=== PATIENT | female | born 1985 | race Caucasian/White ===

== ENCOUNTER 2018-12-26 16:26 | Emergency (ER) | payer OTHER ==
[~2018-12-26] VITALS: Ht 167.6 cm; Wt 79.4 kg
--- NOTE | 2018-12-26 17:01 | NUR ---
PATIENT ARRIVED AT UNIT ACCOMPANIED BY . PATIENT A/O X 3, NO ACUTE DISTRESS. REPORTS THAT SHE TRIPPED AND FELL. WITH C/O PAIN AND SWELLING ON LEFT ANKLE. RESTING ON BED. AWAITING
[2018-12-26] MEDS ORDERED: ACETAMINOPHEN ES 500 MG TABLET ONE (17:09)
[2018-12-26] MEDS ORDERED: ACETAMINOPHEN ES 500 MG TABLET PO ONE (17:30)
--- NOTE | 2018-12-26 17:34 | NUR ---
CALLED [facility]IA[facility] TO HAVE IMAGE READ
--- NOTE | 2018-12-26 18:37 | NUR ---
Patient discharged to home in stable condition. Written and verbal after care instructions given. written prescriptions provided. Patient verbalizes understanding of instruction. patient assisted with nursing staff to parking lot by wheelchair. crutches provided to patient. MD vee
[2018-12-26 18:38] VITALS: BP 122/63
== END 2018-12-26 18:39 | disposition home or self-care (01) ==
LOC: ER 16:30
DX: S82.435A Nondisplaced oblique fracture of shaft of left fibula, initial encounter for closed fracture (principal); Z98.890 Other specified postprocedural states; Z91.040 Latex allergy status; W18.40XA Slipping, tripping and stumbling without falling, unspecified, initial encounter; Y93.89 Activity, other specified; Y92.89 Other specified places as the place of occurrence of the external cause; Y99.8 Other external cause status
CPT/HCPCS: 73610-TC